=== PATIENT | male | born 1955 | race Caucasian/White ===

== ENCOUNTER → 2017-06-12 | Outpatient (CLI) | payer OTHER ==
--- NOTE | 2017-06-12 15:21 | US ---
EXAMINATION TYPE: US kidneys/renal and bladder DATE OF EXAM: 06/12/2017 COMPARISON: NONE CLINICAL HISTORY: 62-year-old male R31.21 MICROSCOPIC HEMATURIA. Patient states having a history of r enal stones that were blasted but doesn't remember when or where. TECHNIQUE: Multiple sonographic images of the kidneys and bladder are obtained. FINDINGS: EXAM MEASUREMENTS: Right Kidney: 12.7 x 5.9 x 5.7 cm without hydronephrosis. Left Kidney: 11.9 x 5.7 x 6.2 cm without hydronephrosis. Right Kidney: Multiple echogenic foci seen, largest measured; upper pole = 0.7 cm and lower pole = 0. 6 cm. Two prominent renal lobulations are visualized. Left Kidney: Multiple echogenic foci seen, largest measured; mid pole = 0.9 cm. Bladder: Underdistention limits its evaluation. Bilateral Jets not seen IMPRESSION: 1. Bilateral nephrolithiasis measuring up to 7 mm on the right and 9 mm on the left. No hydronephrosi s. 2. Renal contour lobulations on the right. No discrete mass seen by ultrasound. 3. Underdistention of the bladder limits its evaluation.
== END | disposition home or self-care (01) ==
LOC: RADUSWWP 14:37
PROVIDERS: ATTEND Family Medicine
DX: N20.0 Calculus of kidney (principal); Q63.1 Lobulated, fused and horseshoe kidney
CPT/HCPCS: 76770

== ENCOUNTER → 2017-12-09 | Outpatient (CLI) | payer OTHER ==
--- NOTE | 2017-12-09 10:20 | XR ---
EXAMINATION TYPE: XR shoulder complete RT DATE OF EXAM: 12/09/2017 CLINICAL HISTORY: Right shoulder sprain injury with pain. TECHNIQUE: Three views of the right shoulder are obtained. COMPARISON: None. FINDINGS: There is no acute fracture/dislocation evident in the right shoulder. Advanced degenerativ e change right acromioclavicular joint with marked joint space loss and spurring is present. There is mild to moderate joint space loss glenohumeral joint. The visualized ribs are intact and unremarkab le. IMPRESSION: There is no acute fracture or dislocation in the right shoulder.
== END | disposition home or self-care (01) ==
LOC: RADXRMAIN 09:58
PROVIDERS: ATTEND Emergency Medicine
DX: S43.401A Unspecified sprain of right shoulder joint, initial encounter (principal)

== ENCOUNTER → 2017-12-29 | Outpatient (CLI) | payer OTHER ==
--- NOTE | 2017-12-29 15:02 | CT ---
EXAMINATION TYPE: CT abdomen pelvis wo con DATE OF EXAM: 12/29/2017 COMPARISON: Renal ultrasound dated 06/12/2018 HISTORY: hematuria, hx of renal stones CT DLP: 1158 mGycm Automated exposure control for dose reduction was used. TECHNIQUE: Helical acquisition of images was performed from the lung bases through the pelvis. FINDINGS: Lack of intravenous and oral contrast limit evaluation of both the hollow and solid viscera . LUNG BASES: There is a left basilar pleural-parenchymal scarring. LIVER/GB: Hepatic parenchyma is diffusely hypoattenuated in comparison to that of the spleen, most co mmonly seen in hepatic steatosis. This finding limits evaluation for hepatic masses. No gross evidenc e of hepatic mass is seen. No intrahepatic biliary ductal dilatation. Gallbladder is partially contra cted with no evidence of cholelithiasis. PANCREAS: No significant abnormality is seen. SPLEEN: Spleen is mildly enlarged measuring 14.0 cm in craniocaudal dimension. Small splenule is pres ent anterior to the [place] spleen. ADRENALS: There is minimal thickening of the left adrenal gland although it maintains its normal adre niform shape, possibly related to adrenal gland hyperplasia. KIDNEYS: There is asymmetric enlargement of the right kidney, mild bilateral perinephric fat strandin g, right greater than left, and multiple nonobstructing renal calculi. There are at least 12 calculi on the left measuring up to 7 mm and at least 8 calculi on the right in addition to renal arterial ca lcifications and multiple possible right renal cysts. FREE AIR: No free air is visualized ADENOPATHY: Multiple nonenlarged periaortic lymph nodes are seen, possibly reactive. Short-term foll ow-up could be performed if there is clinical concern. REPRODUCTIVE ORGANS: Prostate gland is diffusely heterogenous with numerous central zone calcificatio ns. URINARY BLADDER: Incompletely distended and incompletely evaluated although no radiopaque calculi ar e seen within the urinary bladder or visualized urethra. OSSEOUS STRUCTURES: Multilevel degenerative changes are seen of the spine. Osseous structures are gr ossly intact. BOWEL: Bowel is suboptimally evaluated without contrast and with retained colonic stool. Appendix is air-filled and without surrounding inflammatory change containing inspissated debris. No large or sm all bowel dilatation. OTHER: A very small amount of fluid is seen dependently within the pelvis. Partial visualization of p robable bilateral hydroceles are also incidentally seen. Probable calcified mesenteric lymph node is seen within the right lower quadrant on series 3 image 86. This is nonenlarged. Moderate calcific ath eromatous changes are present of the abdominal aorta and its branches. IMPRESSION: 1. ASYMMETRIC ENLARGEMENT OF THE RIGHT KIDNEY, MILD RIGHT PERINEPHRIC FAT STRANDING, AND MINIMALLY DI LATED MID URETER RAISE SUSPICION FOR A PASSED CALCULUS IN THE SETTING OF NEPHROLITHIASIS AND HEMATURI A ALTHOUGH NO RADIOPAQUE CALCULUS IS SEEN WITHIN THE URETER, URINARY BLADDER OR URETER. 2. BILATERAL NONOBSTRUCTING RENAL CALCULI. 3. HEPATIC STEATOSIS. 4. MILD SPINAL MEGALY. 5. MULTIPLE NONENLARGED PERIAORTIC LYMPH NODES ARE PRESENT. FOLLOW-UP COULD BE PERFORMED IN 3 MONTHS TO ENSURE RESOLUTION IF THERE IS CLINICAL CONCERN.
== END | disposition home or self-care (01) ==
LOC: RADCTMAIN 14:06
PROVIDERS: ATTEND Internal Medicine
DX: N20.0 Calculus of kidney (principal); N28.89 Other specified disorders of kidney and ureter; N28.82 Megaloureter
CPT/HCPCS: 74176

== ENCOUNTER → 2018-02-04 | Outpatient (CLI) | payer OTHER ==
--- NOTE | 2018-02-04 07:36 | MR ---
EXAMINATION TYPE: MR shoulder RT wo con DATE OF EXAM: 02/04/2018 COMPARISON: Right shoulder x-ray December 09, 2017 HISTORY: Right shoulder pain with difficulty raising arm overhead after sprain pulling injury roughly 2 months ago. TECHNIQUE: Multiplanar, multisequence imaging of the right shoulder is performed without contrast. FINDINGS: Rotator Cuff: There is increased signal in the distal supraspinatus and infraspinatus tendons with tiny areas of partial tear identified. No full-thickness retracted tear is seen. Rotator cuff muscle bulk is preserved. Subscapularis tendon is intact. Acromioclavicular Joint: There is moderate to advanced joint space loss and spurring with loss inferi or fat plane. Distal acromion morphology is unremarkable.\ Glenohumeral Joint: There is moderate joint space loss with cartilaginous thinning. There is small gl enohumeral joint effusion with more prominent focal fluid extending anteriorly inferiorly and posteri eduin. Labrum: The labrum appears grossly intact given limitation of non-arthrogram study. Biceps Tendon: The long head of biceps is in normal location within bicipital groove. Mild increased signal intracapsular portion with thickening is noted near labral anchor. There is also thickening an d increased fluid signal in the extra-articular portion with surrounding fluid on axial images 6 thro ugh 9. Bone marrow signal: No focal abnormal marrow signal is appreciated. Other: No additional significant abnormality is appreciated. IMPRESSION: 1. Moderate tendinosis with tiny partial tears of distal supraspinatus and infraspinatus tendons. No full-thickness retracted tear is identified. 2. Moderate tendinosis and tenosynovitis of biceps tendon. 3. Moderate to advanced degenerative changes at acromioclavicular joint with suggestion of underlying impingement, correlate clinically. Moderate glenohumeral joint degenerative changes.
== END ==
LOC: RADMRIMAIN 06:00
PROVIDERS: ATTEND Emergency Medicine
DX: M75.91 Shoulder lesion, unspecified, right shoulder (principal); M65.811 Other synovitis and tenosynovitis, right shoulder; M19.011 Primary osteoarthritis, right shoulder

== ENCOUNTER → 2018-04-29 | Outpatient (CLI) | payer OTHER ==
--- NOTE | 2018-04-29 22:05 | CT ---
EXAMINATION TYPE: CT abdomen pelvis wo con DATE OF EXAM: 04/29/2018 COMPARISON: 12/29/2017 HISTORY: 62-year-old male calculus of kidney, Bilateral flank pain. CT DLP: 1123 mGycm. Automated exposure control for dose reduction was used. TECHNIQUE: Contiguous axial scanning of the abdomen and pelvis without IV contrast. Coronal and sagit cale reconstructions performed. FINDINGS: Heart upper limits of normal in size without pericardial effusion. 4 mm peripheral right lower lung pulmonary nodule not clearly seen previously. Follow-up CT chest is recommended. No pleural effusion. Ectatic lower descending thoracic aorta and 27.8 cm. There is a heterogeneous hypodense area seen along the right hepatic dome suspected to correspond to a diaphragmatic slip, axial image 15. Liver measures 22.4 cm otherwise without focal lesion. Gallbladder, right adrenal gland, and pancreas show no gross abnormality by noncontrast CT. Mild diff use thickening of the left adrenal gland without discrete nodularity is unchanged. Spleen remains mildly enlarged at 14.9 cm measured on coronal series. Anterior splenule. 2.8 cm hypodense lesion lateral right kidney is stable for 4 months as are 2 additional cortical hypo densities in the lower pole measuring up to 1.8 cm. 5 nonobstructive right renal calculi are present, largest measuring 9 mm. There is no hydronephrosis or suspicious calcification along the course of t he right ureter. Improvement in the degree of perinephric stranding though some mild residual perinep hric density remains. The kidney itself measures 11.7 cm. Residual mild perinephric stranding on the left also slightly improved from prior exam. No hydronephr osis. Nonobstructive calculi are present, largest measuring 8 mm. Again, no suspicious calcifications seen along the course of either ureter. The left kidney measures 12.6 cm. No dilated small bowel, free fluid, or free air. No mesenteric lymphadenopathy. Redemonstrated numerous prominent retroperitoneal lymph nodes measuring up to 1 cm. The lack of any p rogression from 12/29/2017 suggests a benign etiology. Normal appendix with some inspissated material or tiny calculi within. Mild stool burden. No pericolonic inflammatory change. Moderate atherosclerotic calcifications within the infrarenal abdominal aorta and iliac arteries. Mild circumferential bladder wall thickening. Multiple central prostatic calcifications. Partially vi sualized left scrotal hydrocele. Stable mildly enlarged right external iliac chain lymph node at 1.3 cm. No abnormal fluid collection in the pelvis. Bones: Degenerative changes at the hips and SI joints as well as within the mid to lower lumbar spine . IMPRESSION: 1. Bilateral nonobstructive nephrolithiasis measuring up to 9 mm. 2. The kidneys show residual perinephric fat stranding/edema though decreased from 12/29/2017. Correla te with renal function and other laboratory assessment to exclude underlying infection or underlying acute/chronic kidney injury. 3. No hydronephrosis. 4. Hepatosplenomegaly (22.4 cm and spleen 14.9 cm). 5. A 4 mm peripheral right basilar pulmonary nodule not clearly seen previously. It may not have bee n included in the [id number] on the prior exam. Three-month follow-up CT chest recommended to surv ey the entire lungs. 6. Mild circumferential bladder wall thickening could represent chronic bladder wall hypertrophy or cystitis. Clinically correlate. 7. Stable scattered nonenlarged and mildly enlarged retroperitoneal lymph nodes measuring up to 1 cm . 4 months of stability suggests a benign etiology.
== END | disposition home or self-care (01) ==
LOC: RADCTMAIN 15:31
PROVIDERS: ATTEND Internal Medicine
DX: N20.0 Calculus of kidney (principal); R60.0 Localized edema; R16.2 Hepatomegaly with splenomegaly, not elsewhere classified; N32.89 Other specified disorders of bladder; R59.0 Localized enlarged lymph nodes
CPT/HCPCS: 74176

== ENCOUNTER → 2018-07-16 | Outpatient (CLI) | payer OTHER ==
--- NOTE | 2018-07-16 15:56 | XR ---
EXAMINATION TYPE: XR KUB DATE OF EXAM: 07/16/2018 HISTORY: Pain Comparison: None.Single KUB is submitted for interpretation. Findings: Right renal calculi: Multiple calculi seen right kidney the largest of which is noted within the uppe r pole and measures 5.3 mm slightly larger than on prior examination. Right ureteral calculi: None Visualized. Left renal calculi: Multiple left-sided renal calculi noted which appear to have increased in number since prior examination. The largest calculus measures approximately 1 cm versus 8.5 mm previously. Left ureteral calculi: None Visualized. Pelvic calcifications: None Visualized. Bowel gas pattern is unremarkable. No free air. No mass effects. IMPRESSION: 1. Bilateral nephrolithiasis.
== END | disposition home or self-care (01) ==
LOC: RADXRMAIN 15:13
PROVIDERS: ATTEND Urology
DX: N20.0 Calculus of kidney (principal)
CPT/HCPCS: 74018

== ENCOUNTER → 2018-07-30 | Outpatient (CLI) | payer OTHER ==
--- NOTE | 2018-07-30 09:05 | CT ---
EXAMINATION TYPE: CT sinus wo con DATE OF EXAM: 07/30/2018 COMPARISON: None HISTORY: Chronic maxillary sinusitis CT DLP: 597 mGycm. Automated Exposure Control for Dose Reduction was Utilized. TECHNIQUE: CT scan of the sinuses is performed without contrast, axial images are obtained, coronal r eformatted images are also reviewed. FINDINGS: There is mucosal thickening involving the maxillary sinuses and ethmoid air cells. Frontal sinuses hypoplastic. Sphenoid sinus has a normal appearance. There appears to be evidence of previous surgery with the ostium of the maxillary sinus widely patent . Nasal septal deviation noted. Visualized portion of mastoid air cells show hypoaeration. The globes are intact bilaterally. IMPRESSION: 1. Postsurgical changes with findings compatible with mild chronic sinusitis involving the maxillary and ethmoidal sinuses. 2. Correlate for chronic bilateral mastoiditis.
== END | disposition home or self-care (01) ==
LOC: RADCTMAIN 07:26
PROVIDERS: ATTEND Family Medicine
DX: J32.0 Chronic maxillary sinusitis (principal); Z98.890 Other specified postprocedural states
CPT/HCPCS: 70486

== ENCOUNTER → 2018-09-17 | Day surgery (SDC) | payer OTHER ==
[2018-09-11 10:04] VITALS: BMI 39.3
[~2018-09-17] MED LIST: LACTATED RINGERS 1,000 ML IV SCH; LIDOCAINE 1% 20 ML VIAL (10MG/ML) FOR IV START INTRADERMA PRN; PROPOFOL 10 MG/ML 20 ML VIAL IV ONE
[2018-09-17 07:39] VITALS: TEMP 97
[2018-09-17 07:43] LABS: Glucose,Whole Blood 135 mg/dL (75-99)
--- NOTE | 2018-09-17 08:35 | P.PCN ---
Date of Procedure: 09/17/18 Description of Procedure: BRIEF HISTORY: Patient is a 63-year-old pleasant male scheduled for an elective colonoscopy as a part of screening for colorectal cancer. The patient denies any family history of colon cancer. He does report a familial history of polyps. No change in bowel habits, blood per rectum, hematochezia or melena reported. No prior colonoscopy. PROCEDURE PERFORMED: Colonoscopy with polypectomy. PREOPERATIVE DIAGNOSIS: Screening for colon cancer, no prior colonoscopy. ESTIMATED BLOOD LOSS: Minimal. IV sedation per Anesthesia. PROCEDURE: After informed consent was obtained, the patient, was brought into the endoscopy unit. IV sedation was administered by Anesthesia under continuous monitoring. Digital rectal examination was normal. Initially the Olympus CF-190 flexible video colonoscope was then inserted in the rectum, gradually advanced into the cecum without any difficulty. Careful examination was performed as the scope was gradually being withdrawn. Ileocecal valve and the appendiceal orifice were visualized and appeared normal. Prep was excellent. Mucosa of the cecum, ascending colon, transverse colon, descending colon, sigmoid colon, and rectum appeared normal. One diminutive 2 mm sessile cecal polyp removed with cold forcep polypectomy. One diminutive 3 mm sessile ascending colon polyp removed with cold forcep polypectomy. 4 mm sessile transverse colon polyp removed with cold snare polypectomy. Sessile 6 mm rectal polyp removed with cold forcep polypectomy. Retroflexion was performed in the rectum and no lesions were seen, moderate internal hemorrhoids were noted. The patient tolerated the procedure well. IMPRESSION: 1. 4 polyps removed, 2 with cold forcep polypectomy in the ascending colon and cecum, 2 with cold snare polypectomy in the transverse colon and rectum. 2. Moderate internal hemorrhoids. RECOMMENDATIONS: Findings of this examination were discussed with the patient and his . Okay to resume diet. Anticipate surveillance colonoscopy in 3 years, pending pathology from polypectomies.
[2018-09-17 08:53] VITALS: BP 143/77; PULSE 55; RESP 18
== END ==
LOC: ORWHC2ENDO 07:09
PROVIDERS: ATTEND Internal Medicine
DX: Z12.11 Encounter for screening for malignant neoplasm of colon (principal); D12.3 Benign neoplasm of transverse colon; K63.5 Polyp of colon; K64.8 Other hemorrhoids; Z83.71 Family history of colonic polyps; Z87.891 Personal history of nicotine dependence; Z87.442 Personal history of urinary calculi; E11.9 Type 2 diabetes mellitus without complications; I10 Essential (primary) hypertension; K21.9 Gastro-esophageal reflux disease without esophagitis; E78.5 Hyperlipidemia, unspecified; Z79.82 Long term (current) use of aspirin; Z79.84 Long term (current) use of oral hypoglycemic drugs; Z79.899 Other long term (current) drug therapy
CPT/HCPCS: 88305; 45380; 45385; J2704

== ENCOUNTER → 2021-06-18 | Outpatient (CLI) | payer MEDICARE ==
--- NOTE | 2021-06-18 13:04 | MR ---
MRI CERVICAL SPINE: CLINICAL HISTORY: Neck pain into right shoulder and arm TECHNIQUE: Multiplanar, multisequence imaging of the cervical spine is performed without IV contrast. COMPARISON: None. FINDINGS: Sagittal images of the cervical spine show the craniocervical junction to appear within nor mal limits. The cervical and upper thoracic spinal cord is normal in caliber and signal. Alignment i s straightened with grade 1 retrolisthesis C6 on C7. The vertebral body heights are normal. Mild-to- moderate multilevel disc space narrowing and mild/moderate multilevel anterior spurring. Heterogeneou s Modic type II endplate changes anterior C4-C5 level and Modic type I endplate changes left C6-C7 le zoë. Axial images at C2-C3 level appear within normal limits. Axial images at C3-C4 level show uncovertebral facet degenerative changes bilaterally with broad base d left foraminal disc protrusion, there is moderate right and severe left-sided neural foraminal narr owing. Axial images at C4-C5 level showed broad based left paracentral disc protrusion effacing the anterior thecal sac with mild to moderate right and moderate to severe left-sided neural foraminal narrowing. Axial images at C5-C6 levels are broad-based posterior disc protrusion effacing anterior thecal sac a nd causing moderate to advanced left and mild to moderate right-sided neural foraminal narrowing. Axial images at C6-C7 level shows lobulated posterior and left foraminal disc protrusion effacing the anterior thecal sac, there is moderate to severe left-sided neural foraminal narrowing. Right-sided neural foramen is mildly narrowed. Axial images at C7-T1 levels show posterior spur disc complex effacing the anterior thecal sac, there is mild to moderate left greater than right bilateral neural foraminal narrowing. IMPRESSION: Straightening of cervical spine with C6-C7 spondylolisthesis. Multilevel degenerative donn nges as detailed above.
== END | disposition home or self-care (01) ==
LOC: RADMRIMAIN 11:21
PROVIDERS: ATTEND Family Medicine
DX: M43.12 Spondylolisthesis, cervical region (principal); M50.30 Other cervical disc degeneration, unspecified cervical region
CPT/HCPCS: 72141

== ENCOUNTER 2021-10-12 06:07 | Day surgery (SDC) | payer MEDICARE ==
[2021-10-11 10:05] VITALS: BMI 43.0
[~2021-10-12 06:07] MED LIST changes: +LIDOCAINE 1% (10MG/ML) FOR IV START INTRADERMA PRN; -LIDOCAINE 1% 20 ML VIAL (10MG/ML) FOR IV START INTRADERMA PRN; -PROPOFOL 10 MG/ML 20 ML VIAL IV ONE
[2021-10-12 06:45] VITALS: TEMP 97.3
[2021-10-12 06:46] LABS: Glucose,Whole Blood 168 mg/dL (75-99)
[2021-10-12] MEDS ORDERED: fentaNYL (PF) 50 MCG/ML 2 ML AMP ONE (06:51)
[2021-10-12] MEDS ORDERED: ROPIVACAINE 5MG/ML 20ML VIAL ONE (06:51)
[2021-10-12] MEDS ORDERED: methylPREDNISolone ACETATE 40 MG/ML 1 ML VIAL ONE (06:51)
[2021-10-12] MEDS ORDERED: MIDAZOLAM 2 MG/2 ML VIAL ONE (06:51)
--- NOTE | 2021-10-12 07:24 | P.PCN ---
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 2-cervical degenerative disc disease. 3-cervical foraminal stenosis POSTOPERATIVE DIAGNOSIS: Same as preoperative diagnosis. PROCEDURES: Diagnostic Right C5 , C6, C7 medial branch blocks, with fluoroscopic guidance (fluoroscopy images available in radiology department ) ( to target the facet joint at Right C5- 6, C6-7 )# 1st ANESTHESIA: Monitored anesthesia care as per anesthesia department . EBL: Minimal PROCEDURE INDICATION: The patient with neck pain secondary to cervical arthro camelia unresponsive to more conservative treatments. PROCEDURE DESCRIPTION / TECHNIQUE: The patient was seen and identified in the preoperative area. Risks, benefits, complications, and alternatives were discussed with the patient, the patient agreed to proceed with the procedure and signed the consent. IV was started. Vital signs remained stable throughout the procedure. Patient was taken to the OR and time out was completed. The patient was placed in the Lateral position on the procedure table ( Right side up ). The cervical area was prepped and draped in the usual sterile fashion. Critical pause was taken. Vital signs were closely monitored during the procedure. Conscious sedation was used during the procedure to decrease patients anxiety. Using cross-table lateral fluoroscopy, the centroid of the trapezoid of right C5 C6, C7 was identified, marked, and localized with 1% lidocaine 1 ml at each level for skin and Sub Q infiltrations . Subsequently, a 22 G 3 spinal needle was advanced guided by fluoroscopy to the centroid of the trapezoid of Right C5, C6 , C7 Newell tip position was confirmed at the centroid of the trapezoids of Right C5 ,C6 ,C7 with anteroposterior fluoroscopy. Subsequently, 1.5 ml of preservative-free Ropivacaine 0.5% mixed with Depo-Medrol 40 mg and half ml of the mixture was injected after negative aspiration for blood and CSF. Newell was then removed COMPLICATIONS: No acute complications. DISPOSITION / PLANS: The patient was placed in a supine position and transferred to the recovery area in a stable condition for observation and was discharged from the recovery room after meeting discharge criteria. Home discharge instructions given to the patient by the staff. The patient was reexamined prior to discharge. The patient will schedule a follow up in the clinic in 2-4 weeks.
[2021-10-12] MEDS ORDERED: IV FLUID CONTINUATION 700 ML IV ONE (07:25)
[2021-10-12 07:41] VITALS: BP 131/75; PULSE 67; RESP 16
--- NOTE | 2021-10-12 07:41 | FL ---
EXAMINATION TYPE: FL guided pain mgmt statistic DATE OF EXAM: 10/12/2021 CLINICAL HISTORY: Neck pain. TECHNIQUE: Fluoroscopy. COMPARISON: None. FINDINGS: Fluoroscopic guidance was provided during pain relief procedure performed by Dr. Brothers . A total of 37 seconds of fluoroscopic time was utilized during the procedure and 3 spot images are acquired. Images acquired shows needle localization at several levels near the cervicothoracic tavares ction. IMPRESSION: As Above.
== END 2021-10-12 07:55 | disposition home or self-care (01) ==
LOC: ORPAIN 06:07
PROVIDERS: ATTEND Specialist
DX: M47.812 Spondylosis without myelopathy or radiculopathy, cervical region (principal); M50.30 Other cervical disc degeneration, unspecified cervical region; M48.02 Spinal stenosis, cervical region; I10 Essential (primary) hypertension; E78.5 Hyperlipidemia, unspecified; Z87.891 Personal history of nicotine dependence; R73.03 Prediabetes; E66.01 Morbid (severe) obesity due to excess calories; Z68.41 Body mass index [BMI] 40.0-44.9, adult; Z79.84 Long term (current) use of oral hypoglycemic drugs; Z79.899 Other long term (current) drug therapy
CPT/HCPCS: 64490; 64491; J2250; J1030; J3010; J2795

== ENCOUNTER → 2021-11-01 | Outpatient (CLI) | payer MEDICARE ==
--- NOTE | 2021-11-01 11:16 | P.PAINPG ---
PQRS Measure Charge Sheet Comment: A 66 yr old male with a history of severe and chronic neck pain secondary to degenerative disc diseases and spondylosis with facet arthropathy presents today for evaluation status post R facet blocks medial branches C5- C6, C6-C7 #1. He states he expressed 80% pain relief for one week status post procedure. Pain level is early at 5 out of 10 in intensity, tingling, numbness sensation in the mid to lower aspects of his cervical spine with radiation of additional tingling and numbness to the right upper extremity. Pain is provoked by hyperextension and rotation. Pain is alleviated with medications (steroid Dosepak and July 2021), topicals, injections, physical therapy in June 2021 which aggravated pain, daily home stretching regimen, repositioning and rest. Interventional pain procedures completed include R MBB C5-C6, C6-C7 x1 Patient denies any side effects of the medication(s), denies excessive drowsiness or sleepiness, denies suicidal ideation and reports that the current pain medication is helping to control the pain and improve activities of daily living. Patient denies any motor or sensory deficits. Patient denies any fever or night sweats, denies any change in the bowel movements or urination. Physical Examination: -Constitutional: Cooperative. Not in acute distress . -HEENT: Neck is supple. No lymphadenopathy. No thyromegaly. Normal thyroid size. Eyes: No ptosis , no icterus, no photophobia. ENT: No auditory deficits. Normal oropharynx. No Thrush. - Respiratory: Chest clear to auscultations bilaterally. No wheezing. No rhonchi. - Cardiovascular: Regular rate and rhythm. S1 / S2 , no S3 , no S4. - Gastrointestinal: Abdomen soft no tenderness. Bowel sounds positive in all four quadrants. No organomegaly. - Genitourinary: Deferred. - Neurologic: Cranial nerve II to XII intact. No focal neurological deficits . - Psychatric: Alert & oriented x 3. Matching mood & appropriate affect. Judgment and insight intact. - Lymphatic: No Lymphadenopathy. - Musculoskeletal: Cervical spine: Muscle bulk/ tone/ strength in the bilateral upper extremities normal Vertebral body tenderness to palpation Facet loading test positive over R C5-C6, C6-C7 with paraspinal muscle TTP Thoracic spine Muscle bulk / tone/ strength in the bilateral paraspinal muscles normal Vertebral body tender to palpation over Facet loading test positive Lumbar spine: Motor bulk/ tone/ strength lower extremities , thigh and legs : 5/5 Deep tendon reflexes : Normal Knee Jerk. Normal Ankle Jerk . Vertebral body tenderness to palpation over Lumbar Facet Loading Test positive Straight Leg Raise: positive at 30 degrees right side/ left side Gaenslen's Test positive Sacral spine : Severe tenderness over the Sacroiliac joint: right side / left side Range of motion: Flexion of the lumbar spine <60 degrees Range of motion: Extension of the lumbar spine <20 degrees Gaenslen's Test positive Jose's Test positive Cezar test: positive right side / left side Thigh Thrust Test Sacral Thrust Test Assessment and plan: Chronic neck pain secondary to degenerative disc disease , spondylosis with facet arthropathy without myelopathy Recommendation of R MBB C5 to C6, C6-C7 #2. May need a series of injections, up until RFA, for optimal pain relief. Risks, benefits of procedure discussed and pt verbalized understanding. Denies anticoagulant use or medical history of diabetes. All patient questions answered MAPS reviewed and it was appropriate. I have spent 31 minutes on patient care today. Dr Brothers was available by phone for the evaluation of this patient. The time was used to review the medical records including relevant urine studies and Prescription history (MAPs), review of the available imaging, evaluation and examination of the patient, coordination of care with the medical staff and if applicable referring physicians, as well as creation of the medical record PQRS Narrative: Smoking Status Former smoker Hx Alcohol Use (MH) No Home Medications: Ambulatory Orders Aspirin [Adult Low Dose Aspirin EC] 81 mg PO DAILY 09/11/18 Cholecalciferol [Vitamin D3] 5,000 unit PO DAILY 09/11/18 Cinnamon Bark [Cinnamon] 1,000 mg PO BID 09/11/18 Dapagliflozin/Metformin HCl [Xigduo Xr 10 mg-1,000 mg Tab] 1 each PO DAILY Metoprolol Tartrate [Lopressor] 100 mg PO BID 09/11/18 Simvastatin 40 mg PO DAILY 09/11/18 Vitamin B Complex 1 each PO DAILY 09/11/18 sitaGLIPtin [Januvia] 100 mg PO DAILY 09/11/18 Glimepiride [Amaryl] 4 mg PO DAILY 10/11/21 Lisinopril-Hctz 20-12.5 mg [Zestoretic 20-12.5] 1 tab PO DAILY 10/11/21 Pioglitazone [Actos] 30 mg PO DAILY 10/11/21 Tamsulosin HCl [Flomax] 0.4 mg PO DAILY PRN 10/11/21 metFORMIN HCL [Glucophage] 1,000 mg PO DAILY 10/11/21 Controlled Substance Measures - Controlled Substance Measures Is patient prescribed a controlled substance at discharge?: No
[2021-11-01 15:15] VITALS: BP 143/74; PULSE 64; RESP 18; TEMP 98.6
== END ==
LOC: PNWHC3 10:38
PROVIDERS: ATTEND Specialist
DX: M50.30 Other cervical disc degeneration, unspecified cervical region (principal); M47.812 Spondylosis without myelopathy or radiculopathy, cervical region; G89.29 Other chronic pain; Z87.891 Personal history of nicotine dependence
CPT/HCPCS: 99211

== ENCOUNTER 2021-12-06 06:27 | Day surgery (SDC) | payer MEDICARE ==
[2021-12-06] MEDS ORDERED: LACTATED RINGERS 1,000 ML IV SCH (06:45)
[2021-12-06 06:57] VITALS: TEMP 97.4
[2021-12-06 07:16] LABS: Glucose,Whole Blood 120 mg/dL (70-110)
[2021-12-06] MEDS ORDERED: MIDAZOLAM 2 MG/2 ML VIAL ONE (07:25)
[2021-12-06] MEDS ORDERED: ROPIVACAINE 5 MG/ML 20 ML AMPULE ONE (07:25)
--- NOTE | 2021-12-06 07:34 | P.PCN ---
Date of Procedure: 12/06/21 Procedure(s) Performed: Right cervical medial branch block at C5 C6 and C6-C7 Description of Procedure: Procedure: Cervical Medial Branch Block at right C5 6, C6-C7 Indications: Neck Pain Diagnosis: Cervical spondylosis without myelopathy Imaging: Fluoroscopy was used, images where saved to the medical record Anesthesia: 2 mg of Versed Description of procedure: The patient was seen and examined in the [facility]. Procedure risks and benefits were fully reviewed with patient. The patient understands this is a diagnostic as well as a therapeutic procedure and that the goal of the procedure is to inject medication on to the medial branch or small nerves that go into the facet joints. In this way, we can hopefully identify which of these joints, if any, may be contributing to their pain. Informed consent for the procedure was obtained. The patient was taken into the office fluoroscopy procedure room and placed supine on the table. Vital signs were closely monitored during the procedure. The skin over the area was prepped with chlorhexidine and draped in usual sterile manner. Sterile technique was observed throughout procedure. Under fluoroscopic guidance, the target injection areas of the the above noted level's medial branches were visualized in lateral views. Using biplanar fluoroscopy, a 25 gauge 2.5 inch needle was inserted into proper position where the tip of the needle was located at the midpoint of the quadrangle at each level. After negative aspiration for blood and CSF, 0.5cc of 0.5 % Ropivacaine was injected into each of the targeted areas. The needles were withdrawn intact. No complications were noted during the procedure. The patient tolerated procedure well. The patient was placed in supine position and transferred to the recovery area for observation and remained stable until discharged home. Home discharge instructions given to the patient by the staff. The patient was reexamined prior to discharge. Follow up/plan: I have provided the patient with a prescription for a EMG and nerve conduction study to be done to determine if the numbness he has in his right hand is cervical radiculopathy versus peripheral neuropathy versus a peripheral lesion of the median nerve. He would also like to discuss using nerve stabilizing agent such as gabapentin or Lyrica on his next visit with us.
[2021-12-06 07:47] VITALS: RESP 16
[2021-12-06] MEDS ORDERED: IV FLUID CONTINUATION 1,000 ML IV ONE (07:47)
[2021-12-06 07:55] VITALS: BP 124/78; PULSE 62
--- NOTE | 2021-12-06 07:57 | FL ---
EXAMINATION TYPE: FL guided pain mgmt statistic DATE OF EXAM: 12/06/2021 CLINICAL HISTORY: Neck pain. TECHNIQUE: Fluoroscopy. COMPARISON: 10/12/2021. FINDINGS: Fluoroscopic guidance was provided during pain relief procedure performed by Dr. Wyatt. A total of 4 seconds of fluoroscopic time was utilized during the procedure and 3 spot images are ac quired. Images acquired shows needle localization at the C4 facet joint. IMPRESSION: As Above.
== END 2021-12-06 08:10 | disposition home or self-care (01) ==
LOC: ORPAIN 06:27
PROVIDERS: ATTEND Hospitalist
DX: M47.812 Spondylosis without myelopathy or radiculopathy, cervical region (principal); Z79.82 Long term (current) use of aspirin; Z79.899 Other long term (current) drug therapy; Z79.84 Long term (current) use of oral hypoglycemic drugs; Z87.891 Personal history of nicotine dependence; Z80.9 Family history of malignant neoplasm, unspecified
CPT/HCPCS: 64490; 64491; J2250; J2795

== ENCOUNTER → 2021-12-20 | Outpatient (CLI) | payer MEDICARE ==
[2021-12-20 11:53] VITALS: BP 133/83; PULSE 61; RESP 18; TEMP 98.4
--- NOTE | 2021-12-20 14:36 | P.PAINPG ---
PQRS Measure Charge Sheet Comment: A 66 yr old male with a history of severe and chronic neck pain secondary to degenerative disc diseases and spondylosis with facet arthropathy presents today for evaluation s/p facet block. He states he received 20% pain relief s/p procedure. Pain level is currently at 4/10 in intensity, constant, throbbing pain shooting towards RUE. Pain is provoked by lifting. Pain is alleviated with PT in May 2021 for 3 weeks, massage integrated with PT, repositioning and rest. Interventional pain procedures completed include R C5-C6, C6-C7 x 1 Patient denies any side effects of the medication(s), denies excessive drowsiness or sleepiness, denies suicidal ideation and reports that the current pain medication is helping to control the pain and improve activities of daily living. Patient denies any motor or sensory deficits. Patient denies any fever or night sweats, denies any change in the bowel movements or urination. Physical Examination: -Constitutional: Cooperative. Not in acute distress . - Neurologic: Cranial nerve II to XII intact. No focal neurological deficits. - Psychatric: Alert & oriented x 3. Matching mood & appropriate affect. Judgment and insight intact. - Musculoskeletal: Cervical spine: Muscle bulk/ tone/ strength in the bilateral upper extremities normal Vertebral body tenderness to palpation over C5 Spurling test positive Distraction test positive Facet loading test positive Thoracic spine Muscle bulk / tone/ strength in the bilateral paraspinal muscles normal Vertebral body tender to palpation over Facet loading test positive Lumbar spine: Motor bulk/ tone/ strength lower extremities , thigh and legs : 5/5 Deep tendon reflexes : Normal Knee Jerk. Normal Ankle Jerk . Vertebral body tenderness to palpation over Lumbar Facet Loading Test positive Straight Leg Raise: positive at 30 degrees right side/ left side Gaenslen's Test positive Sacral spine : Severe tenderness over the Sacroiliac joint: right side / left side Range of motion: Flexion of the lumbar spine <60 degrees Range of motion: Extension of the lumbar spine <20 degrees Gaenslen's Test positive Jose's Test positive Cezar test: positive right side / left side Thigh Thrust Test Sacral Thrust Test Assessment and plan: Chronic low back pain secondary to lumbar degenerative disc disease , lumbar spondylosis with facet arthropathy without myelopathy Pt did not received sufficient pain relief with the procedure. He will follow up w his Neurologist for a scheduled EMG and may follow up w his orthopedic surgeon as well. He may return to our clinic in the future on an as needed basis. Risks, benefits of procedure discussed and pt verbalized understanding. Denies anticoagulant use or medical history of diabetes. All patient questions answered MAPS reviewed and it was appropriate. I have spent less than 30 minutes on patient care today. Dr Brothers was available by phone for the evaluation of this patient. The time was used to review the medical records including relevant urine studies and Prescription history (MAPs), review of the available imaging, evaluation and examination of the patient, coordination of care with the medical staff and if applicable referring physicians, as well as creation of the medical record PQRS Narrative: Smoking Status Former smoker Hx Alcohol Use (MH) No Home Medications: Ambulatory Orders Aspirin [Adult Low Dose Aspirin EC] 81 mg PO DAILY 09/11/18 Cholecalciferol [Vitamin D3] 5,000 unit PO DAILY 09/11/18 Cinnamon Bark [Cinnamon] 1,000 mg PO BID 09/11/18 Dapagliflozin/Metformin HCl [Xigduo Xr 10 mg-1,000 mg Tab] 1 each PO DAILY 09/11/18 Metoprolol Tartrate [Lopressor] 100 mg PO BID 09/11/18 Simvastatin 40 mg PO DAILY 09/11/18 Vitamin B Complex 1 each PO DAILY 09/11/18 sitaGLIPtin [Januvia] 100 mg PO DAILY 09/11/18 Glimepiride [Amaryl] 4 mg PO DAILY 10/11/21 Lisinopril-Hctz 20-12.5 mg [Zestoretic 20-12.5] 1 tab PO DAILY 10/11/21 Pioglitazone [Actos] 30 mg PO DAILY 10/11/21 Tamsulosin HCl [Flomax] 0.4 mg PO DAILY PRN 10/11/21 metFORMIN HCL [Glucophage] 1,000 mg PO BID 10/11/21 Controlled Substance Measures - Controlled Substance Measures Is patient prescribed a controlled substance at discharge?: No
== END | disposition home or self-care (01) ==
LOC: PNWHC3 11:06
PROVIDERS: ATTEND Specialist
DX: M47.896 Other spondylosis, lumbar region (principal); M51.36 Other intervertebral disc degeneration, lumbar region
CPT/HCPCS: 99211

== ENCOUNTER 2024-02-19 08:42 | Day surgery (SDC) | payer MEDICARE ==
[2024-02-18 11:22] VITALS: BMI 42.1
[2024-02-19 10:32] VITALS: RESP 16; TEMP 97.4
[2024-02-19] MEDS: LIDOCAINE 1% (10MG/ML) FOR IV START INTRADERMA ONE (10:40)
[2024-02-19] MEDS: IV FLUID CONTINUATION 1,000 ML IV ONE (10:40)
[2024-02-19] MEDS: LACTATED RINGERS 1,000 ML IV SCH (10:40)
[2024-02-19 10:53] LABS: Glucose,Whole Blood 137 mg/dL (70-110)
[2024-02-19] MEDS ORDERED: PROPOFOL 10 MG/ML 20 ML VIAL IV ONE (10:57)
--- NOTE | 2024-02-19 11:21 | P.GSHP ---
History of Present Illness H&P Date: 02/19/24 Chief Complaint: Screening colonoscopy This is a 68-year-old male who presents today for screening colonoscopy. Patient denies any significant GI complaints. Past Medical History Past Medical History: Diabetes Mellitus, Hyperlipidemia, Hypertension, Osteoarthritis (OA) Additional Past Medical History / Comment(s): hx kidney stones, "pre diabetic", History of Any Multi-Drug Resistant Organisms: None Reported Past Surgical History: Ear Surgery, Tonsillectomy Additional Past Surgical History / Comment(s): sinus surgery, infection in rt leg lanced, erin cataract surgery Past Anesthesia/Blood Transfusion Reactions: No Reported Reaction Additional Past Anesthesia/Blood Transfusion Reaction / Comment(s): diff iV starts Smoking Status: Former smoker - Past Family History Son(s) Family Medical History: Cancer Medications and Allergies Home Medications Medication Instructions Recorded Confirmed Type Aspirin [Adult Low Dose Aspirin EC] 81 mg PO DAILY 09/11/18 02/18/24 History Cholecalciferol [Vitamin D3] 5,000 unit PO DAILY 09/11/18 02/18/24 History Cinnamon Bark [Cinnamon] 1,000 mg PO BID 09/11/18 02/18/24 History Dapagliflozin/Metformin HCl 1 each PO DAILY 09/11/18 02/18/24 History [Xigduo Xr 10 mg-1,000 mg Tab] Metoprolol Tartrate [Lopressor] 100 mg PO BID 09/11/18 02/18/24 History Simvastatin 40 mg PO DAILY 09/11/18 02/18/24 History Vitamin B Complex 1 each PO DAILY 09/11/18 02/18/24 History sitaGLIPtin [Januvia] 100 mg PO DAILY 09/11/18 02/18/24 History Glimepiride [Amaryl] 4 mg PO DAILY 10/11/21 02/18/24 History Lisinopril-Hctz 20-12.5 mg 1 tab PO DAILY 10/11/21 02/18/24 History [Zestoretic 20-12.5] Pioglitazone [Actos] 30 mg PO DAILY 10/11/21 02/18/24 History Tamsulosin HCl [Flomax] 0.4 mg PO DAILY PRN 10/11/21 02/18/24 History metFORMIN HCL [Glucophage] 1,000 mg PO BID 10/11/21 02/18/24 History Gabapentin 300 mg PO HS 02/18/24 02/18/24 History Allergies Allergy/AdvReac Type Severity Reaction Status Date / Time No Known Allergies Allergy Verified 02/19/24 10:21 Surgical - Exam Vital Signs Temp Pulse Resp BP Pulse Ox 97.4 F L 62 16 186/85 97 02/19/24 10:30 02/19/24 10:30 02/19/24 10:30 02/19/24 10:30 02/19/24 10:30 - General well developed, well nourished, no distress - Eyes PERRL - ENT normal pinna - Neck no masses - Respiratory normal expansion - Cardiovascular Rhythm: regular - Abdomen Abdomen: soft, non tender Results - Labs Abnormal Lab Results - Last 24 Hours (Table) 02/19/24 Range/Units 10:42 POC Glucose (mg/dL) 137 H (70-110) mg/dL Assessment and Plan Assessment: Will perform screening colonoscopy
[2024-02-19 11:25] VITALS: PULSE 57
--- NOTE | 2024-02-19 11:27 | P.OP ---
Date of Procedure: 02/19/24 Preoperative Diagnosis: Screening colonoscopy Postoperative Diagnosis: Rectal polyp Diverticulosis Hemorrhoids Procedure(s) Performed: Colonoscopy Anesthesia: MAC Surgeon: Timothy Sharma Pathology: other (Right colon polyp) Condition: stable Disposition: PACU Description of Procedure: The patient was placed on the endoscopy table lateral position. He received IV sedation. Digital rectal exams performed which revealed external hemorrhoids. Flexible colonoscope was then placed patient anus and passed throughout the entire colon. The ileocecal valve was visualized. The cecum appeared normal. In the right colon there was a sessile polyp. This removed with a snare. Remainder the ascending colon appeared normal. There was mild diverticular changes in the transverse colon. The descending and sigmoid colon was a few more diverticuli seen. Scope was brought back to the rectum screen normal. Scope was then withdrawn from the patient.
[2024-02-19 11:41] VITALS: BP 136/74
== END 2024-02-19 12:14 | disposition home or self-care (01) ==
LOC: ORWHC2ENDO 08:42
PROVIDERS: ATTEND Surgery
DX: Z12.11 Encounter for screening for malignant neoplasm of colon
CPT/HCPCS: 45385; 88305

== ENCOUNTER → 2024-08-11 | Outpatient (CLI) | payer MEDICARE ==
[2024-08-11 20:46] LABS: ALT 25 U/L (10-49); AST 24 U/L (14-35); Albumin 4.3 g/dL (3.8-4.9); Albumin/Globulin Ratio 1.48 Ratio (1.60-3.17); Alkaline Phosphatase 65 U/L (41-126); BUN/Creat Ratio 25.25 Ratio (12.00-20.00); Blood Urea Nitrogen 30.3 mg/dL (9.0-27.0); Calcium 9.5 mg/dL (8.7-10.3); Carbon Dioxide 28.5 mmol/L (21.6-31.8); Chloride 103 mmol/L (96-109); Globulin 2.9 g/dL (1.6-3.3); Glucose 101 mg/dL (70-110); HCG,Quantitative Serum <3.0 mIU/mL (0.0-6.0); Potassium 4.8 mmol/L (3.5-5.5); Sodium 144 mmol/L (135-145); Total Bilirubin 0.5 mg/dL (0.3-1.2); Total Protein 7.2 g/dL (6.2-8.2)
[2024-08-11 21:33] LABS: HCT 47.1 % (39.6-50.0); HGB 14.8 g/dL (13.0-17.0); MCH 29.8 pg (27.0-32.0); MCHC 31.4 g/dL (32.0-37.0); Mean Platelet Volume 12.5 FL (9.5-12.2); NRBC Per 100 WBC 0 X 10*3/uL (0.00-0.01); Platelet Count 147 X 10*3/uL (140-440); RBC 4.96 X 10*6/uL (4.40-5.60); RDW 15.2 % (11.5-14.5); WBC 6.64 X 10*3/uL (4.50-10.00)
== END | disposition home or self-care (01) ==
LOC: LABWHC1 14:47
PROVIDERS: ATTEND Family Medicine
DX: E11.40 Type 2 diabetes mellitus with diabetic neuropathy, unspecified (principal); N50.89 Other specified disorders of the male genital organs
CPT/HCPCS: 36415; 80053; 82105; 83036; 84702; 85027

== ENCOUNTER → 2024-09-07 | Outpatient (CLI) | payer MEDICARE ==
[2024-09-07 20:15] LABS: Appearance,BF Clear; Color,BF Yellow; Nucleated Cells, Body Fluid 55 /uL; RBC, Body Fluid 620 /uL
[2024-09-07 20:22] LABS: Mononuclear WBC,Body Fluid 94 %; Polynuclear WBC,Body Fluid 6 %; Total Cells Counted,Body Fluid 100
[2024-09-08 04:35] LABS: Synovial Fld Crystals None Seen (None Seen)
== END | disposition home or self-care (01) ==
LOC: LABT 14:57
PROVIDERS: ATTEND Physician Assistant
DX: M25.562 Pain in left knee (principal)
CPT/HCPCS: 87070; 87205; 89050; 89060